=== PATIENT | female | born 1955 | race Native Hawaiian/Other Pacific Islander ===

== ENCOUNTER 2020-08-05 12:52 | Outpatient (CLI) | payer OTHER | END 2020-08-05 23:59 | disposition home or self-care (01) | LOC: EDBD 12:52 → INF 12:52 | PROVIDERS: ATTEND Internal Medicine | DX: Z23 Encounter for immunization (principal) | CPT/HCPCS: 96372 ==

== ENCOUNTER 2020-09-02 13:10 | Outpatient (CLI) | payer OTHER | END 2020-09-02 22:00 | disposition home or self-care (01) | LOC: INF 13:10 | PROVIDERS: ATTEND Internal Medicine | DX: Z23 Encounter for immunization (principal) | CPT/HCPCS: 96372 ==